=== PATIENT | male | born 1970 | race Caucasian/White ===

== ENCOUNTER 2016-12-25 01:28 | Emergency (ER) | payer OTHER ==
[2016-12-25 03:25] VITALS: BP 143/99
== END 2016-12-25 03:15 | disposition home or self-care (01) ==
LOC: ED 01:28
DX: M25.061 Hemarthrosis, right knee (principal)
CPT/HCPCS: J1170; J3490; J7030; Q0162

== ENCOUNTER 2016-12-25 06:42 | Emergency (ER) | payer OTHER ==
[2016-12-25 09:35] VITALS: BP 130/64
== END 2016-12-25 09:35 | disposition home or self-care (01) ==
LOC: ED 06:42
DX: M25.561 Pain in right knee (principal)
CPT/HCPCS: J2270; J3010; Q0162